=== PATIENT | male | born 1950 | race Caucasian/White ===

== ENCOUNTER → 2018-08-14 | Emergency (ER) | payer OTHER | END | disposition home or self-care (01) | LOC: E/R 09:39 | DX: S61.512A Laceration without foreign body of left wrist, initial encounter (principal); C18.9 Malignant neoplasm of colon, unspecified; X78.1XXA Intentional self-harm by knife, initial encounter; Y92.9 Unspecified place or not applicable; Z87.891 Personal history of nicotine dependence | CPT/HCPCS: 99282 ==